=== PATIENT | male | born 1975 | race Caucasian/White ===

== ENCOUNTER 2017-03-02 21:51 | Inpatient (IN) ==
[2017-03-02] MEDS ORDERED: ASPIRIN PO STA (22:21)
[2017-03-02 22:41] LABS: MANUAL DIFF NEEDED? NO
--- NOTE | 2017-03-02 22:42 | Diag Imaging Result Doc PS360 ---
EXAM: CHEST-2 VIEWS HISTORY: CP TECHNIQUE: COMPARISON: 10/06/2016 FINDINGS: The lungs are well expanded. The heart is not enlarged. The vessels are not distended. There are no infiltrates. No pleural effusions. IMPRESSION: No acute abnormality. Electronically signed by Hermes Medina 03/02/2017 10:39 PM
[2017-03-02 22:47] LABS: BASO% 0.6 % (0.0-0.8); EOS# 0.25 X1000 (0.0-0.7); EOS% 3.6 % (0.0-10.0); HEMATOCRIT 36.6 % (42.0-52.0); IMM GRAN# 0.03 X1000 (0.0-0.04); IMM GRAN% 0.4 % (0.0-0.5); LYMPH# 2.21 X1000 (1.2-3.4); LYMPH% 31.5 % (20.5-51.1); MCH 30.5 PG (27-31); MCHC 35.5 g/dL (33-37); MCV 85.9 FL (81-99); MONO# 0.71 X1000 (0.11-0.59); MONO% 10.1 % (1.7-9.3); MPV 11.2 FL (7.4-10.4); NEUT% 53.8 % (42.2-75.2); PLT 248 X1000 (130-400); RBC 4.26 XMIL (4.7-6.1)
[2017-03-02] MEDS ORDERED: NITROGLYCERIN TOP ONE (22:51)
[2017-03-02 23:06] LABS: INR 0.96; PTT 26.8 Seconds (22.0-36.0)
[2017-03-02 23:13] LABS: AGAP 12; ALKALINE PHOSPHATASE 64 U/L (32-122); BUN 11 mg/dL (8-22); CALCIUM 9.1 mg/dL (8.8-10.2); CHLORIDE 103 mmol/L (98-107); CK PROFILE 139 U/L (24-204); COSMO 284; GOT 16 U/L (10-34); GPT 17 U/L (10-44); MAGNESIUM 2.1 mg/dL (1.5-2.7); POTASSIUM 4.2 mmol/L (3.5-5.1); SODIUM 142 mmol/L (136-145); TCO2 27 mmol/L (25-35); TOTAL BILIRUBIN 0.24 mg/dL (0.20-1.00); TOTAL PROTEIN 6.3 g/dL (6.3-8.3)
--- NOTE | 2017-03-03 01:23 | PROVIDER DOCUMENTATION ---
HPI-Chest Pain - General Chief Complaint: Chest Pain Stated Complaint: CP, RT SIDE PAIN Time Seen by Provider: 03/02/17 22:23 Source: patient Allergies/Adverse Reactions: Patient Allergies Allergy/AdvReac Type Severity Reaction Status Date / Time No Known Allergies Allergy Verified 12/21/16 14:07 Home Medications: Home Medication List Medication Instructions Recorded Confirmed Last Taken Type Lisinopril 10 mg PO QAM #30 tablet 06/04/16 12/31/16 Unknown Rx Lorazepam [Ativan] 1 mg PO TID PRN #10 tablet 10/06/16 12/31/16 Unknown Rx Acetaminophen with Codeine 1 each PO Q6H PRN PRN #12 tablet 12/28/16 12/31/16 Unknown Rx [Tylenol with Codeine #3] Sulfamethoxazole/Trimethoprim 1 each PO BID #20 tablet 12/28/16 12/31/16 Unknown Rx [Bactrim Ds Tablet] Tramadol [Ultram] 50 mg PO Q8HR #30 tablet 12/31/16 Unknown Rx - History of Present Illness-CP Nature of Presenting Problem: complains of two week history of chest pain that worsened yesterday. Pain radiates down right side "all the way to my toe". Pt has complex history to include CAD s/p PCI, PE, CVA. He has not seen a doctor in many years. Of note , pt questions if he might have been bit by a snake yesterday as he has two padron on his right leg. Location: reports: central Chest Pain Radiation: reports: other (right leg) Quality of Pain: reports: aching Severity in ED: moderate Onset/Duration: other (2 weeks) Timing: getting worse Context/Activities at Onset: reports: none Modifying Factors: improves with: movement Associated Symptoms: reports: shortness of breath, weakness Nitro Today/Relief: no nitro taken today Aspirin Treatment Today: no aspirin today Similar Symptoms Previously?: No Recently Seen Here or By Another Healthcare Provider: No Review of Systems - Adult - REVIEW OF SYSTEMS - ADULT Constitutional: reports: no symptoms reported. denies: fever, fatique Eyes: reports: no symptoms reported. denies: decreased vision, blurred vision Ears, Nose, Mouth & Throat: reports: no symptoms reported Cardiovascular: reports: see HPI, chest pain. denies: orthopnea, palpitations Respiratory: reports: shortness of breath. denies: wheezing Gastrointestinal: denies: abdominal pain, diarrhea, vomiting Genitourinary: reports: no symptoms reported Musculoskeletal: reports: no symptoms reported Integumentary: reports: no symptoms reported Neurological: reports: no symptoms reported. denies: ataxia, dizziness/vertigo , headache/migraines, paresthesia Psychiatric: reports: no symptoms reported Endocrine: reports: no symptoms reported Hematologic/Lymphatic: reports: no symptoms reported Allergic/Immunologic: reports: no symptoms reported All Other Systems: Reviewed and Negative Past History - Adult - PAST MEDICAL HISTORY-ADULT Review of Records: reports: Old Records Reviewed, Nursing Assessment Review, Medications Reviewed, Social history reviewed & non-contributory. Major Childhood Illnesses: reports: denies history Cardiovascular: reports: HTN, AR, other (PE; septal defect) Respiratory: reports: denies history Gastrointestinal: reports: denies history Obstetrical/Gynecological: reports: denies history Genitourinary: reports: denies history Musculoskeletal: reports: denies history Neurological: reports: CVA Psychiatric: reports: denies history Endocrine/Immune: reports: denies history Other Conditions: reports: other (gout) - PRIOR SURGERIES/PROCEDURES Surgical/Procedure History: reports: appendectomy, other (balloon angioplasty) - PRIOR HOSPITALIZATIONS Prior Hospitalizations: reports: none - IMMUNIZATION STATUS Childhood Immunizations: See Nurse Assessment Flu Vaccine: See Nurse Assessment - FAMILY HISTORY Family History: reviewed, not pertinent - SOCIAL HISTORY Smoking: denies Substance Use: none/never Alcohol Use Frequency: never Physical Exam-General - PHYSICAL EXAM-ADULT Initial Vital Signs Reviewed: Yes - CONSTITUTIONAL General Appearance: appears well, alert, no apparent distress - EYES Eyes: PERRL/EOMI, pink conjunctivae - HEAD, EARS, NOSE, MOUTH & THROAT HENMT: normocephalic/atraumatic, moist mucous membranes - NECK Neck: non-tender - RESPIRATORY Respiratory: chest non-tender, lungs clear, normal breath sounds - CARDIOVASCULAR Cardiovascular: normal peripheral pulses, regular rate, rhythm, no edema - GASTROINTESTINAL (ABDOMEN) Abdominal Exam: normal bowel sounds, non tender, soft - MUSCULOSKELETAL Extremity: normal range of motion, non-tender. negative: calf tenderness, swelling, tenderness - SKIN Integumentary: normal color, normal turgor, other (2 small puncture wounds to right lower leg. nontender. no swelling.) - NEUROLOGIC Neurologic: tissue coordinator II-XII nml as tested, grossly normal - PSYCHIATRIC Psych/Mental Status: normal mood/affect, oriented x 3 Progress - PLAN OF CARE/RESULTS Progress/Plan/Lab Results: Vital Signs - 8 hr 03/02/17 21:57 Temperature 97.5 F L Pulse Rate 81 Respiratory Rate 18 Blood Pressure 163/90 O2 Sat by Pulse Oximetry 100 Laboratory Results - last 24 hr 03/02/17 03/02/17 03/02/17 22:30 22:30 22:30 WBC 7.01 RBC 4.26 L Hgb 13.0 L Hct 36.6 L MCV 85.9 MCH 30.5 MCHC 35.5 RDW Std Deviation 12.4 Plt Count 248 MPV 11.2 H Immature Gran % (Auto) 0.4 Neut % (Auto) 53.8 Lymph % (Auto) 31.5 Woods % (Auto) 10.1 H Eos % (Auto) 3.6 Baso % (Auto) 0.6 Immature Gran # (Auto) 0.03 Neut # (Auto) 3.77 Lymph # (Auto) 2.21 Woods # (Auto) 0.71 H Eos # (Auto) 0.25 Baso # (Auto) 0.04 PT INR PTT (Actin FS) D-Dimer Sodium 142 Potassium 4.2 Chloride 103 Carbon Dioxide 27 Anion Gap 12 BUN 11 Creatinine 1.1 Estimated GFR/1.73 m2 > 60 BUN/Creatinine Ratio 10 Glucose 117 H Calculated Osmolality 284 Calcium 9.1 Magnesium 2.1 Total Bilirubin 0.24 AST 16 ALT 17 Alkaline Phosphatase 64 Creatine Kinase 139 Troponin T Gal-E-Nzngfsdmrfi Pept 29 Total Protein 6.3 Albumin 4.0 Globulin 2.3 Albumin/Globulin Ratio 1.7 03/02/17 03/02/17 03/02/17 22:30 22:30 22:30 WBC RBC Hgb Hct MCV MCH MCHC RDW Std Deviation Plt Count MPV Immature Gran % (Auto) Neut % (Auto) Lymph % (Auto) Woods % (Auto) Eos % (Auto) Baso % (Auto) Immature Gran # (Auto) Neut # (Auto) Lymph # (Auto) Woods # (Auto) Eos # (Auto) Baso # (Auto) PT 10.0 INR 0.96 PTT (Actin FS) 26.8 D-Dimer 0.14 Sodium Potassium Chloride Carbon Dioxide Anion Gap BUN Creatinine Estimated GFR/1.73 m2 BUN/Creatinine Ratio Glucose Calculated Osmolality Calcium Magnesium Total Bilirubin AST ALT Alkaline Phosphatase Creatine Kinase Troponin T < 0.010 Nuz-R-Octjawnldcb Pept Total Protein Albumin Globulin Albumin/Globulin Ratio Orders Category Date Time Status Cardiac Monitoring DIRECTED Care 03/02/17 22:21 Active Oxygen Therapy- ED Nursing DIRECTED Care 03/02/17 22:21 Active Saline Loc NOW Care 03/02/17 22:21 Active CHEST-2 VIEWS [RAD] Stat Exams 03/02/17 22:21 Completed CBC WITH ELECTRONIC DIFF [HEME] Stat Lab 03/02/17 22:30 Completed CK PROFILE [SP CHEM] Stat Lab 03/02/17 22:30 Completed CK TOTAL [CHEM] Stat Lab 03/03/17 01:21 Received COMPREHENSIVE METABOLIC PANEL [CHEM] Stat Lab 03/02/17 22:30 Completed Ddimer [D-DIMER] [CHEM] Stat Lab 03/02/17 22:30 Completed MAGNESIUM [CHEM] Stat Lab 03/02/17 22:30 Completed PRO B-NATRIURETIC PEPTIDE Stat Lab 03/02/17 22:30 Completed PROTIME WITH INR [COAG] Stat Lab 03/02/17 22:30 Completed PTT [COAG] Stat Lab 03/02/17 22:30 Completed TROPONIN T Stat Lab 03/02/17 22:30 Completed TROPONIN T Stat Lab 03/03/17 01:21 Received Aspirin Med 03/02/17 22:21 Discontinued 325 mg PO STAT STA Nitroglycerin Med 03/02/17 22:51 Discontinued 1 inch TOP NOW ONE EKG [EKG] Stat Ther 03/02/17 21:55 Ordered EKG [EKG] Stat Ther 03/03/17 00:53 Ordered Transfer/Admit Order [TRANSFER] Routine Transfer 03/03/17 01:22 Ordered 0100: pt gone after ntg Result Diagrams: 03/02/17 22:30 03/02/17 22:30 - XRAY 1 XRAY Study: Chest Impression: Normal, See EMR Report - CONSULTS/PCP/HOSPITALIST Notification #1 *Consult/PCP/Hospitalist*: Dr. Hamilton Time Discussed: 02:02 Consult Disposition: Admit Departure - Departure Date of Disposition Decision: 03/03/17 Time of Disposition Decision: 01:22 DIAGNOSIS: Chest pain Qualifiers: Chest pain type: unspecified Qualified Code(s): R07.9 - Chest pain, unspecified Disposition: ADMITTED INPATIENT 09 Certified Medical Emergency: Emergent Condition: Stable - Critical Care Note This patient required my direct & personal management of CC.: No Attestation - Physician/ CARY Attestation Patient care was provided by Advanced Practice Provider:: Yes Advanced Practice Provider:: Chan Reich Advanced Practice Provider documentation review:: The Mid-level provider documentation, treatment plan and medical decision making was reviewed by the physician who agrees with all treatment and medical decision making by the MLP.
[2017-03-03] MEDS ORDERED: ATIVAN PO PRN (02:29)
[2017-03-03] MEDS: NS 1,000 ML IV SCH ×2 (03:08→15:04)
[2017-03-03] MEDS: PRILOSEC PO SCH (05:59)
[2017-03-03] MEDS: ULTRAM PO SCH ×3 (05:59→20:41)
--- NOTE | 2017-03-03 08:46 | Diag Imaging Result Doc PS360 ---
EXAM: EXTREM LOWER W/CONTRAST HISTORY: snake bite, leg pain, chest pain TECHNIQUE: COMPARISON: None. FINDINGS: No fracture. No bony abnormality. The soft tissues are symmetric. No soft tissue mass. No necrosis. No fluid collection. There are tiny calcifications or pieces of metal just anterior to each distal tibia. IMPRESSION: No acute abnormality. Electronically signed by Hermes Medina 03/03/2017 8:43 AM
[2017-03-03] MEDS: PRINIVIL PO SCH (08:52)
[2017-03-03] MEDS: ATIVAN PO PRN ×2 (12:18→20:41)
--- NOTE | 2017-03-03 17:24 | HISTORY AND PHYSICAL ---
TIME: 0300. PRIMARY CARE PROVIDER: None. HEDIS ANALYST: None. CHIEF COMPLAINT: Chest pain. HISTORY OF PRESENT ILLNESS: Mr. Sneed is a 42-year-old, male with a past medical history of NE with cardiac stent placement, CVA, DVT and pulmonary embolism. All of these diagnoses outside of his hypertension occurred in 2013. He was evaluated at [facility] for this. [facility] with complaints of chest pain that has been ongoing for 2 weeks. He describes the chest pain as a dull type pain that is intermittent. It moves from his left chest to his right chest. He reports some neck pain as well as right arm pain. He states this pain comes on when he is at rest and when he is exerting himself. The patient reports that since his cardiac stent placement in 2003, that he has not seen a heating element winder since. He did report that after receiving a treatment for his NE, CVA, DVT and pulmonary embolism that he was on Coumadin for approximately 1 year. He reports that at this time he does not have a family doctor and has been getting his prescription medicines from the ER, though has been out of his medicines now for approximately 1 month. The patient denies a diagnosis of sleep apnea, but does report that he wakes up at night gasping for air at some times. He also has had been unable to lay flat to sleep. He states that he has to prop up and uses 2-3 pillows at this time. Also, in addition, he also reports that yesterday morning on March 02 that he was mowing his grass on a riding bellstand attendant. The patient states that he thought he saw something in the grass and does report feeling like he got bit by something. The patient states that he could have been bitten by a snake, though at this time, he is not having any swelling, erythema or discoloration in his right lower extremity where this suspected snake bite is. He is hemodynamically stable. The patient does report a very intense pain in his right lower leg up his entire body into his right arm. He denies any dizziness, lightheadedness, headache, shortness of breath, abdominal pain, nausea, vomiting, or diarrhea. He denies any hematochezia or melena. He denies any dysuria or urinary frequency. He denies any swelling, numbness or tingling in the extremities. He also denies any fever, body aches or chills. REVIEW OF SYSTEMS: A 12-point review of systems was conducted with the patient. All were negative except for pertinent positives mentioned in above HPI. PAST MEDICAL HISTORY: 1. Coronary artery disease, status post stent placement in 2003 with no followup since. 2. History of DVT and pulmonary embolism in 2003 as well. 3. History of CVA in 2013. 4. Hypertension. PAST SURGICAL HISTORY: 1. Appendectomy. 2. Incision and drain of an abscess on the right leg. 3. Cardiac stent placement in 2003. SOCIAL HISTORY: Patient reports some occasional alcohol use. He did have a period approximately 4-5 years ago where he drank heavily daily for about 4 years. He reports that during this time, he would drink up to 30 beers in a day, though at this time denies any alcohol use other than just occasional on the weekend. He reports that he has never smoked cigarettes and does not use any illicit drugs. FAMILY HISTORY: Positive for his mother having a history of heart disease, diabetes mellitus, hypertension and blood clots. His father has a history of lung cancer. He does have a sister that secondary to a pulmonary embolism. He has another sister who has a history of COPD and congestive heart failure and his 3rd sister has a history of fibromyalgia, degenerative disk disease and edema in bilateral extremities. ALLERGIES: Patient reports no known allergies. HOME MEDICATIONS: 1. Ultram 50 mg p.o. q.8 hours. 2. Ativan 1 mg p.o. t.i.d. p.r.n. 3. Lisinopril 10 mg p.o. daily. DIAGNOSTIC DATA/LABORATORY RESULTS: White blood cell count 7.01, hemoglobin 13 , hematocrit 36.6, platelet count is 248,000. INR 0.96, PTT 26.8, D-dimer is 0.14. Sodium 142, potassium 42, chloride 103, bicarb 27, BUN 11, creatinine 1.1. Glucose 117, calcium 9.1. Liver function tests within normal limits. CK is 139. EKG is less than 0.01. ProBNP is 29. Chest x-ray showed no acute abnormality. This is per Radiology. EKG shows normal sinus rhythm with sinus arrhythmia at a rate of 75 and a QTc of 439. Chest 2- Views shows no acute abnormality per Radiology. Lower extremity CT showed no acute abnormalities as per Radiology. PHYSICAL EXAMINATION: VITAL SIGNS: Temperature 97.6 degrees, heart rate 75, respirations 18, blood pressure 159/98, oxygen saturations 99% nasal cannula 2 L. GENERAL: Mr. Sneed is a pleasant 42-year-old male who is resting comfortably in the inpatient bed. He is in no acute distress. He was awake, alert, and able to answer all questions appropriately. HEENT: Head is atraumatic, normocephalic. Pupils are equal, round, reactive to light, were 3 mm bilaterally and brisk. Oral mucosa is moist. Oropharynx clear. NECK: Supple. Trachea midline. No carotid bruits noted. CARDIOVASCULAR: Patient has normal S1, S2. No murmurs, gallops, or rubs appreciated with a regular rate and rhythm. PULMONARY: Patient has symmetrical chest expansion bilaterally. Lung sounds are clear to auscultation bilateral steel. ABDOMEN: Soft, nontender. Does not appear to be distended, but the patient does have a protuberant abdomen noted. Bowel sounds were present in all 4 quadrants. EXTREMITIES: No cyanosis, clubbing, or edema noted. Pulse, motor and sensory were intact in all extremities. Pedal pulses were 3+ bilaterally. The patient does have some pain noted to his right leg as previously mentioned. NEUROLOGICAL: The patient is alert and oriented to person, place, time, and situation. Cranial nerves 2-12 are grossly intact. INTEGUMENTARY: Patient's skin color is pink, warm, and dry. He does have two superficial puncture type wounds noted to his right lower lateral leg that do have a snake bite type injury in appearance, though no lesions or sores noted. ASSESSMENT AND PLAN: 1. Chest pain. Given the patient's cardiac history and that he has not had any follow-up in quite a long time, we have placed a consult for Cardiology. He will undergo a myocardial perfusion scan this morning. He did already receive an aspirin. We will do a series of troponins and we will continue to monitor his cardiovascular status very closely and await further evaluation and recommendations from Cardiology. 2. Hypertension. We will continue the patient's lisinopril 10 mg p.o. daily and monitor this closely. 3. Rule out hypercoagulability. We have ordered for the patient to have some coagulopathy studies performed. Given his family history of blood clots and pulmonary embolism and his previous history, we will further evaluate the patient for this, await those results, and continue to monitor. 4. Rule out possible snake bite. As previously mentioned, the patient reports that he might have received a snake bite while riding his riding bellstand attendant. The patient does have two puncture type wounds noted on his right lower extremity that do look similar to snake bite markings. Though at this time, he is not reporting any symptoms related to snake bite- type injury except for pain in his right lower extremity. He has not have any swelling, erythema or discoloration noted to his right lower extremity. He is hemodynamically stable at this time. We did order a CT of the right lower extremity which was negative per Radiology. We have ordered for the patient to have vital signs q.4 hours as well as neurovascular checks every 4 hours as well and for the nurse to notify the attending physician immediately of any change in his neurovascular status. 5. Deep vein thrombosis prophylaxis will be provided with JHONATAN hose. Patient was placed on the medical floor with telemetry. Vital signs q.4 hours. He will be on a heart healthy diet. We will do strict intake and output. Further orders and recommendations pending hospital course, diagnostic studies, and physician evaluation. Dictated by NGA Molina for Richard Juarez MD cc: Richard Juarez MD MTDD
[2017-03-04] MEDS: ULTRAM PO SCH ×3 (04:33→21:21)
[2017-03-04] MEDS: PRILOSEC PO SCH ×2 (04:33→05:59)
[2017-03-04] MEDS: ATIVAN PO PRN ×3 (04:33→21:21)
[2017-03-04] MEDS: NS 1,000 ML IV SCH ×2 (04:42→17:55)
[2017-03-04 05:31] LABS: MANUAL DIFF NEEDED? NO
[2017-03-04 05:47] LABS: EOS# 0.17 X1000 (0.0-0.7); HEMATOCRIT 36.6 % (42.0-52.0); HEMOGLOBIN 12.6 g/dL (14.0-18.0); IMM GRAN# 0.02 X1000 (0.0-0.04); IMM GRAN% 0.3 % (0.0-0.5); LYMPH# 1.73 X1000 (1.2-3.4); LYMPH% 30.1 % (20.5-51.1); MCHC 34.4 g/dL (33-37); MCV 87.1 FL (81-99); MONO# 0.57 X1000 (0.11-0.59); MONO% 9.9 % (1.7-9.3); MPV 11.1 FL (7.4-10.4); NEUT% 55.7 % (42.2-75.2); PLT 238 X1000 (130-400)
[2017-03-04 05:59] LABS: HDL 37 mg/dL (35-55); LDL 93 mg/dL; TRIGLYCERIDES 194 mg/dL (39-160); VLDL 39 mg/dL
[2017-03-04 06:02] LABS: AGAP 10; BUN 11 mg/dL (8-22); CALCIUM 8.4 mg/dL (8.8-10.2); CHLORIDE 103 mmol/L (98-107); COSMO 278; POTASSIUM 4.4 mmol/L (3.5-5.1); SODIUM 139 mmol/L (136-145); TCO2 26 mmol/L (25-35)
[2017-03-04] MEDS ORDERED: LEXISCAN ONE (09:01)
--- NOTE | 2017-03-04 09:27 | EKG Report ---
Test Performed on : 03/02/2017 10:05:50 PM Test Reason : cp Blood Pressure : / mmHG Vent. Rate : 062 BPM Atrial Rate : 062 BPM P-R Int : 162 ms QRS Dur : 094 ms QT Int : 402 ms P-R-T Axes : 074 006 032 degrees QTc Int : 408 ms Normal sinus rhythm. with sinus arrhythmia. Possible Inferior infarct , age undetermined Abnormal ECG When compared with ECG of 06-OCT-2016 21:39, Borderline criteria for Inferior infarct are now present Unconfirmed Result
--- NOTE | 2017-03-04 09:46 | CONSULTATION ---
DATE OF CONSULTATION: 03/03/2017 REQUESTING PHYSICIAN: Hospitalist Service REASON FOR CONSULTATION: Chest pain. HISTORY OF PRESENT ILLNESS: Mr. Sneed is a 42-year-old male who presents to the emergency room at 10:30 p.m. last night complaining of 2 weeks of recurrent pains across the anterior chest. This does not appear to be related to physical activity. It happens intermittently. It is not associated with nausea, vomiting, diaphoresis or dyspnea. He said that yesterday he started having pains that went from the toe all the say up to the head following the entire right side of his body. The pain was very intense, and he decided to seek evaluation. In the ER, they did a chest x-ray that shows no abnormalities. A 12-lead electrocardiogram was done twice at 10:05 p.m. on 03/02/2017 and then again at 1:06 a.m. today, and both EKGs are basically normal. He has had 3 troponin levels drawn, and all of them are negative. The patient says that right now he is having mild intermittent chest discomfort. ProBNP level is normal. Chemistry is normal. Hemoglobin is slightly low at 13 g, white cell count is 7000, platelet count is normal at 248,000. PAST MEDICAL HISTORY: Positive for a "pulmonary embolus" in 2003. At that time, he says he was admitted to [facility] where they diagnosed him with a stroke, heart attack and a blood clot. He said that Dr. Carrington performed a cardiac procedure. He claims to have received a stent. At any rate, he has not had any further incidents since then; however, he was followed by the [facility] and eventually the physician that was taking care of him retired. He has not been taking any medication. He says that he does have hypertension; however, he has not been consistent with his therapy. Of note, this patient has been seen at the emergency room here in [place] multiple times. Between 04/2011 until 12/31/2016, he has been seen a total of 24 times for several different diagnoses including shoulder pain, joint pain, extremity pain, gout, bites, laceration, a stabbing, chest pain, shortness of breath, insect bite, acute appendicitis recently in 09/2016. He has been also seen for blurred vision, suicidal thoughts, insect bite again and wound recheck in the recent past. PAST SURGICAL HISTORY: Positive for the aforementioned appendicitis. He had an appendectomy by Dr. Lopez in 09/2016. The pathology was unremarkable. HOME MEDICATIONS: He is taking lisinopril, lorazepam and Tylenol with codeine No. 3. ALLERGIES: None reported. FAMILY HISTORY: His sister is at the bedside, and she states that they do have a strong family history of premature heart disease in the father and mother. They have diabetes also in the family. SOCIAL HISTORY: He lives by himself. He is not . He says that he had children, but apparently 2 of them at a young age, the reason is unclear. REVIEW OF SYSTEMS: Really noncontributory. 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 He has not had any major limitation to perform his usual activities. PHYSICAL EXAMINATION: Blood pressure is 141/97, temperature 97.4, respirations 18, pulse 93. Awake, alert and oriented, in no distress. HEENT is unremarkable. Chest clear to auscultation and percussion. Heart sounds regular and rhythmic. No gallop or murmur is noted. Abdomen is obese, nontender, no hepatomegaly. No bruits. No masses. Extremities showed normal pulses. No peripheral edema. Neurologic: Awake, alert and oriented x3. Speech is clear. He follows commands. Moves all 4 extremities. IMPRESSION: 1. The patient is presenting with atypical chest discomfort. He does have some risk factors for coronary artery disease. He is obese, body mass index is 38.5. He is not a smoker. 2. Family history of diabetes and coronary artery disease. 3. Obesity. 4. History of hypertension. 5. Medical noncompliance. RECOMMENDATIONS: They have ordered an echocardiogram which I have already reviewed. His ejection fraction was normal, and his valvular structures appeared to be normal. I will request a walking Lexiscan myocardial perfusion stress test for tomorrow for further evaluation. I would check a lipid panel. Further advice will be forthcoming. Thank you for asking us to participate in this patient's evaluation. cc: Jakob Mendez MD
--- NOTE | 2017-03-04 10:01 | ECHO REPORT ---
ORDER DATE: 03/03/2017 INTERPRETING PHYSICIAN: Dr. Mendez REQUESTING PHYSICIAN: CLINICAL INDICATIONS: This is a 42-year-old male with chest pain. M-MODE MEASUREMENTS: Right ventricle: 3.7 cm. Left ventricle end diastole: 5.3 cm. Left ventricle end systole: 3.6 cm. Posterior wall: 1.0 cm. Interventricular septum: 1.0 cm. Left atrium: 3.5 cm. Aortic root: 4.2 cm. SUMMARY OF 2-DIMENSIONAL IMAGIN. The left ventricular function is normal. Ejection fraction is 63%. Chamber is not dilated. 2. Right ventricle appears to be mild to moderately enlarged. 3. The atria appeared to be normal. 4. Mitral valve looks normal. Color flow mapping indicates trace regurgitation. 5. Pulse wave Doppler of mitral inflow is normal. 6. Tissue Doppler of septal and lateral mitral annulus averages 12 cm. 7. Pulmonary venous flow is normal. 8. There is no diastolic dysfunction. 9. Aortic valve looks normal. Color flow mapping is unremarkable. 10.Pulmonic valve looks normal. Color flow mapping indicates trivial degree of regurgitation. 11.Tricuspid valve shows mild degree of regurgitation. 12.The inferior vena cava was suboptimally visualized, but it does not appear to be dilated. 13.There is no pericardial effusion, mass or thrombus. CONCLUSIONS: 1. Excellent left ventricular systolic function. 2. No diastolic dysfunction. 3. No evidence of any significant valvular abnormality. 4. No pulmonary hypertension. 5. No pericardial effusion. Clinical correlation is recommended. cc: MD Richard Nagel MD
[2017-03-04] MEDS: PRINIVIL PO SCH ×2 (10:20→10:45)
--- NOTE | 2017-03-04 13:36 | Diag Imaging Result Document ---
PROCEDURE NAME: MYOCARDIAL PERF SCAN, STR/REST - 03/04/2017 STUDY: Lexiscan Cardiolite stress test. FINDINGS: Lexiscan was infused per standard protocol. This was a walking Lexiscan perfusion. There was no chest pain. Stress electrocardiogram was negative for ischemia. Following Lexiscan infusion, Cardiolite was injected. 14.8 mCi of Cardiolite was injected for the rest phase, 46.5 mCi of Cardiolite was injected for the stress phase. Gated SPECT images were obtained in standard views. Images revealed significant chest wall and diaphragmatic attenuation. Left ventricular cavity size is normal. There is a fixed defect noted in the inferior wall, low-grade. There is also a fixed defect noted in the left ventricular apex with small fadia-infarct ischemia in the left ventricular apex. All this is associated with significant diaphragmatic and chest wall attenuation. This could represent attenuation defect as well. Would recommend clinical correlation. Left ventricular ejection fraction 60%. CONCLUSIONS: 1. No chest pain. 2. Negative Lexiscan stress electrocardiogram. 3. Myocardial perfusion images revealed low-grade fixed defect in the inferior and inferoapical wall, associated with small fadia-infarct ischemia in the left ventricular inferoapical portion. There is significant chest wall attenuation. Left ventricular ejection fraction 60%. Would recommend clinical correlation. cc: MD Jakob Amanda MD
--- NOTE | 2017-03-04 15:03 | PROGRESS NOTE ---
DATE: 03/04/2017 CHIEF COMPLAINT: Chest pain. SUBJECTIVE: Mr. Sneed is feeling better regarding the chest pain. His troponins are negative. OBJECTIVE: Vital signs: Blood pressure is 155/82. Temperature 98 degrees. Pulse 60. Respirations 22. General: He is awake, alert and oriented, in no distress. HEENT: Unremarkable. Chest: Clear to auscultation and percussion. Cardiac: Heart sounds are regular and rhythmic. No gallop or murmur. Abdomen: Nontender, soft. No masses. No hepatomegaly. Extremities: Show good pulses. No peripheral edema. Neurologic: Follows commands. Moves four extremities. LABORATORY DATA: Today white count is 5740, hemoglobin 12.6, hematocrit 36.6. Sodium 139, potassium 4.4, BUN 11, creatinine 0.8. Cholesterol 169, triglycerides 194, LDL 93, HDL 37. IMPRESSION: 1. Patient presented with chest pain, somewhat atypical. 2. Patient has prior history of cellulitis, right leg, MRSA. 3. History of hypertension. 4. Obesity. 5. Family history of diabetes and coronary heart disease. 6. Abnormal myocardial perfusion stress test. Today his stress test has been reported by Dr. Pham as suggesting scar plus ischemia in the inferior wall of the left ventricle. RECOMMENDATIONS: Given the patient's presentation and the abnormal nuclear perfusion stress test, it may be best to pursue left heart catheterization to confirm or rule out the presence of severe coronary heart disease. Benefits, risks, complications discussed with him in detail. He understood, requested to proceed. Will make arrangements for tomorrow morning. cc: Jakob Mendez MD
[2017-03-04] MEDS ORDERED: MAGNESIUM SULFATE 2 GM in STERILE WATER INJ. 50 ML IV PRN ×4 (16:54)
[2017-03-04] MEDS ORDERED: DULCOLAX PR PRN (16:54)
[2017-03-04] MEDS ORDERED: TYLENOL PO PRN (16:54)
[2017-03-04] MEDS ORDERED: XANAX PO PRN (16:54)
[2017-03-04] MEDS ORDERED: MILK OF MAGNESIA PO PRN (16:54)
[2017-03-04] MEDS ORDERED: MAGNESIUM SULFATE 3 GM in NS 100 ML IV PRN (16:54)
[2017-03-04] MEDS ORDERED: CEPACOL SORE THROAT LOZENGE MT PRN (16:54)
[2017-03-04] MEDS ORDERED: KLOR-CON PO PRN ×3 (16:54)
[2017-03-04] MEDS ORDERED: RESTORIL PO PRN (16:54)
[2017-03-04] MEDS ORDERED: PERCOCET-5 PO PRN (16:54)
[2017-03-04] MEDS ORDERED: NITROGLYCERIN SL PRN (16:54)
[2017-03-04] MEDS ORDERED: ZOFRAN IV PRN (16:54)
[2017-03-05] MEDS: PRILOSEC PO SCH ×2 (05:08→10:55)
[2017-03-05] MEDS: ATIVAN PO PRN ×2 (05:08→10:59)
[2017-03-05] MEDS: ULTRAM PO SCH (05:08)
[2017-03-05] MEDS ORDERED: HEPARIN 1000 UNITS/NS 2,000 UNIT/1,000 ML IV.SOLN ONE (06:48)
[2017-03-05] MEDS ORDERED: NITROGLYCERIN ONE (07:01)
--- NOTE | 2017-03-05 07:23 | EKG Report ---
Test Performed on : 03/05/2017 06:09:10 AM Test Reason : Pre Heart Cath Blood Pressure : / mmHG Vent. Rate : 049 BPM Atrial Rate : 049 BPM P-R Int : 168 ms QRS Dur : 108 ms QT Int : 414 ms P-R-T Axes : 037 016 041 degrees QTc Int : 373 ms Sinus bradycardia. Otherwise normal ECG When compared with ECG of 03-MAR-2017 01:06, (Unconfirmed) Vent. rate has decreased BY 26 BPM QT has shortened Confirmed by Lonnie Miles MD ([id number]) on 03/05/2017 12:28:18 PM
[2017-03-05] MEDS ORDERED: VERSED ONE ×2 (07:27→07:54)
[2017-03-05] MEDS ORDERED: NS 1,000 ML ONE (07:28)
[2017-03-05] MEDS ORDERED: DEMEROL ONE ×2 (07:28→07:54)
[2017-03-05] MEDS ORDERED: CLAVE TWINSITE 32 IN 11959 ONE (07:35)
--- NOTE | 2017-03-05 08:28 | CARDIAC CATH REPORT ---
DATE: 03/05/2017 PROCEDURE: 1. Left heart catheterization. 2. Selective coronary angiogram. 3. Left ventriculogram. 4. Selective opacification, right femoral artery, with deployment of 6-Bruneian Angio-Seal device. HISTORY: A 42-year-old male with several risk factors for coronary heart disease presenting to the hospital with significant chest pain at rest. The patient underwent a nuclear myocardial perfusion stress test that showed partially reversible inferior defect raising concern for coronary heart disease. Because of his obesity and his symptoms, we recommended to pursue left heart catheterization for definitive diagnosis. Benefits, risks, complications were discussed with him in detail. He understood and requested to proceed. 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 The patient received a total 3 mg of Versed and 75 mg of Demerol given in divided doses for adequate sedation. A 6-Bruneian sheath was inserted into the right femoral artery by following the modified Seldinger technique. Using 6-Bruneian left Jennifer 4 catheters, the left and the right coronary artery were sequentially opacified in multiple projections. Then using the same right Jennifer catheter, the aortic valve was negotiated. The left ventricular pressure was determined. Left ventriculogram was performed in 60-degree SYRIAC projection and 30-degree GERMANIA projection by hand injection. Then at the end of the procedure, the right Jennifer catheter was removed. The sheath was flushed. The right femoral artery opacified, and then Angio-Seal device was deployed successfully. The patient tolerated the procedure quite well without any obvious complication. SUMMARY OF THE HEMODYNAMIC FINDINGS: Central aortic pressure 111/71, left ventricular pressure 118/18. Post LV gram left ventricular pressure 117/15. Final central aortic pressure 127/79. This indicates borderline LVEDP elevation, which actually in the end appeared to be just normal. SUMMARY OF THE ANGIOGRAPHIC FINDINGS: 1. Left main coronary artery: This vessel arises from the left coronary sinus of Valsalva, and it appears to be angiographically normal. It divides into LAD and circumflex. 2. Left anterior descending coronary artery: This vessel is anatomically normal. It gives rise to a bifurcating diagonal branch and continues down the anterior interventricular groove as a normal vessel. It shows no evidence of obstruction. The LAD is anatomically normal. 3. Circumflex: The circumflex appears to be angiographically normal. It is a nondominant vessel. It gives rise to a tiny high lateral branch. Thereafter, it gives rise to a very good-sized obtuse marginal vessel and a terminal A-V branch. The circumflex system is normal. 4. Right coronary artery: The right coronary artery appears to be angiographically normal arising from the right coronary sinus of Valsalva in a normal fashion. It gives rise to a conus branch and a sinus arnold branch. It gives rise to acute marginal branches, and distally, it gives rise to a posterior descending branch and a posterolateral vessel. The right coronary artery is angiographically normal. LEFT VENTRICULOGRAM: Left ventriculogram was performed in the 60-degree SYRIAC projection and 30- degree GERMANIA projection. The left ventricular contractility is normal. The ejection fraction is visually estimated at 60% to 65%. There is no wall motion abnormality. The chamber appears to be normal in size. No mitral regurgitation is noted. OPACIFICATION OF THE RIGHT FEMORAL ARTERY: The right femoral artery is anatomically normal. Angio-Seal device was deployed successfully. IMPRESSION: In summary, this study shows: 1. Normal epicardial coronary arteries. 2. Normal LVEDP. 3. Normal left ventricular systolic function. 4. No evidence of aortic stenosis, no mitral regurgitation. 5. Anatomically normal right femoral artery with successful deployment of Angio-Seal device. RECOMMENDATION: The patient should be treated for optimization of his several noncardiac issues including obesity. From the cardiac viewpoint, there is nothing else to pursue. His coronary arteries are normal, and his symptoms are noncardiac in etiology. He may be discharged home later on today or at the convenience of the primary service. Thank you again for the opportunity to participate in his evaluation. cc: Jakob Mendez MD
--- NOTE | 2017-03-05 09:06 | PROGRESS NOTE ---
DATE: 03/04/2017 SUBJECTIVE: I saw Mr. Sneed very early this morning at about 9:30. Mr. Sneed referred he was doing fine. He continued to have some mild residual chest discomfort but nothing extraordinary. OBJECTIVELY: Vital Signs: Blood pressure was 155/82, pulse of 60 respiration was 22, temperature 98.0 degrees. General: Mr. Sened is a 42-year-old male. He was in bed. Not seemingly distressed. HEENT: Mucosa was pink and moist. Anicteric. Acyanotic. Neck is supple. Chest: Good air entry bilateral. No crepitations. No rhonchi. Cardiovascular: Regular rate and rhythm. There are no murmurs, no rubs, no gallops. Abdomen was soft and nontender. Extremities: No pedal edema. RELIEF CHARGE NURSE: The patient was alert, awake, oriented x4. There is no focal neurological deficit. LABORATORY DATA: WBC was 5.74, hemoglobin was 12.6, platelet count 238,000. Chemistry was reviewed and was unremarkable. Cholesterol panel was also reviewed. Triglyceride was 194, HDL cholesterol was 37 and LD was 93. IMAGING: Studies were reviewed. A myocardial perfusion scan was abnormal with small fadia-infarct ischemia in the left ventricular inferior apical portion. Ejection fraction was about 60%. ASSESSMENT: 1. Atypical chest pain with abnormal myocardial perfusion stress test. Patient has been evaluated by Cardiology and the plan is to do a left heart catheterization tomorrow. 2. Hypertension, stable. 3. History of remote cerebrovascular accident. 4. Obesity with Body Mass Index of 38.5. In general, Mr. Sneed is doing fine. He had a stress test which was remarkably abnormal. He has already been evaluated by Cardiology, and there is a plan for left heart catheterization tomorrow morning. cc: Himanshu Mckeon MD MTDD
[2017-03-05] MEDS ORDERED: MAALOX PLUS LIQUID PO PRN (09:22)
--- NOTE | 2017-03-05 09:40 | EKG Report ---
Test Performed on : 03/05/2017 09:24:43 AM Test Reason : post cath Blood Pressure : / mmHG Vent. Rate : 068 BPM Atrial Rate : 068 BPM P-R Int : 168 ms QRS Dur : 114 ms QT Int : 406 ms P-R-T Axes : 047 033 046 degrees QTc Int : 431 ms Normal sinus rhythm. Normal ECG When compared with ECG of 05-MAR-2017 06:09, (Unconfirmed) QT has lengthened Confirmed by Lonnie Miles MD ([id number]) on 03/05/2017 12:28:44 PM
[2017-03-05] MEDS: PRINIVIL PO SCH (10:54)
[2017-03-05] MEDS: NS 1,000 ML IV SCH (10:55)
[2017-03-05 12:05] VITALS: BP 138/79
--- NOTE | 2017-03-06 09:43 | DISCHARGE SUMMARY ---
ADMISSION DATE: 03/03/2017 DISCHARGE DATE: 03/05/2017 CONSULTATIONS: Dr. Mendez with cardiology. PERTINENT PROCEDURES: 1. Echocardiogram showed an EF of 63%. 2. Lower extremity CT showed no acute abnormality. 3. Myocardial perfusion scan was a negative Lexiscan. 4. Cardiac catheterization showed normal epicardial coronary arteries, normal left ventricular systolic function. DISCHARGE DIAGNOSES: 1. Chest pain that atypical, abnormal nuclear perfusion stress test with a normal left heart catheterization. Patient has been cleared from a cardiology standpoint. The patient will be discharged home. 2. Hypertension, stable. 3. Remote cerebrovascular accident history. 4. Obesity with a body mass index of 38.5. HOSPITAL COURSE: Briefly, Mr. Sneed is a 42-year-old male who carries a past medical history of TX with cardiac stent placement, CVA, DVT, PE. All these diagnoses, outside of his hypertension, occurred in 2013. He was evaluated at [facility] for this. The patient presented to the ED with complaints of chest pain that had been ongoing for 2 weeks. He described the chest pain as a dull type that was intermittent. It moves from his left chest to his right chest. He reports some neck pain as well as right arm pain. He states that the pain comes on when he is at rest and when he is exerting himself. He also reports, since his cardiac stent placement in 2013 that he has not seen a plow mechanic since. He reported that after receiving treatment for his TX, CVA, DVT, and PE that he was on Coumadin for approximately 1 year. He reports at that time, he did not have a family doctor and has been getting his prescription medicines from a ER, though he has been out of his medicines now for approximately 1 month. 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 He thought it could have been a snake. At the time of his admission, he was not having any swelling or erythema or discoloration to the right lower extremity where the suspected snake bite is. He was hemodynamically stable. The patient did report a very intense pain in his right lower leg, up the entire body, into his right arm. They did do a CT of his right lower extremity. It was negative, along with q.4 hour neurovascular checks, as well as a full hypercoagulability workup, given his previous history of blood clots and PEs, as well as a full cardiac workup given his history. The patient did have a negative Lexiscan stress electrocardiogram. However, it did show myocardial perfusion imaging that revealed low-grade fixed defects in the inferior and inferoapical wall associated with a small fadia-infarct ischemia in the left ventricular, inferoapical portion. There was significant wall attenuation. Left ventricular EF was 60%. They did recommend clinical correlation. The patient, the next day, underwent a left heart catheterization that showed normal epicardial coronary arteries. Normal LVEDP, normal left ventricular systolic function. No evidence of aortic stenosis. No mitral regurgitation. Cardiology recommended that the patient be treated for optimization of his several noncardiac issues including obesity and from their standpoint, there was nothing else to pursue. His coronary arteries were normal and his symptoms were noncardiac in etiology. He may be discharged home later in the day. VITAL SIGNS: Temperature is 98.4 degrees, heart rate 58, respirations 16, blood pressure 145/77, O2 is 100% on room air. DISCHARGE DIET: Healthy heart. DISCHARGE MEDICATIONS: As per Dr. Hamilton: 1. Klonopin 0.5 mg p.o. b.i.d. p.r.n. 2. Lisinopril 20 mg p.o. b.i.d. 3. Percocet 5 one each p.o. q.4 hours p.r.n. FOLLOWUP: The patient is being discharged home by Dr. Hamilton. He will need to find a primary care physician and follow up accordingly. He will need to stick to a healthy heart diet. He has been educated on diet and exercise for weight loss. The patient can return to the ED for any worsening of symptoms. Discharge time of 30 minutes. Dictated by NGA Byrd for Richard Juarez MD cc: Richard Juarez MD
== END 2017-03-05 15:00 | disposition home or self-care (01) ==
LOC: 4N 21:51 → ED 21:51 → SUATTDRO 03-03 01:31 → OBSVTOIN 03-03 01:31 → 4N 03-03 02:19 → 3S 03-05 09:01
PROVIDERS: ATTEND Internal Medicine